=== PATIENT | male | born 1980 ===

== ENCOUNTER → 2017-02-23 | Outpatient (CLI) | payer BC ==
--- NOTE | 2017-02-23 11:09 | DIAGNOSTIC IMAGING REPORT ---
(BARIUM SWALLOW) ESOPHAGUS CLINICAL HISTORY: ATYPICAL CHEST PAIN,GASTROESOPHAGEALREFLUX DISEASE COMPARISON STUDY: None. FLUOROSCOPY TIME: 1 minute. FINDINGS: 21 fluoroscopic images were obtained. No esophageal mass or stricture was identified. A 13 mm barium tablet passed into the stomach. No reflux was elicited. No hiatal hernia was identified. IMPRESSION: Normal barium swallow. Electronically signed by: Rolando De Jesus M.D. 02/23/2017 11:08 AM Dictated Date/Time: 02/23/2017 11:07 AM
== END | disposition home or self-care (01) ==
LOC: C.RAD 10:38
PROVIDERS: ATTEND Internal Medicine
DX: R07.89 Other chest pain (principal); K21.9 Gastro-esophageal reflux disease without esophagitis